=== PATIENT | male | born 1985 | race Two or more races ===

== ENCOUNTER 2022-12-22 11:54 | Emergency (ER) | payer SELFPAY ==
[~2022-12-22] VITALS: Ht 177.8 cm; Wt 102.0 kg
[2022-12-22 13:28] LABS: BASOPHILS % 0.6 % (0.0-2.0); EOSINOPHILS % 2.9 % (0.0-5.0); HEMATOCRIT. 46.1 % (42.0-52.0); MEAN CORPUSCULAR HEMOGLOBIN 30.4 pg (28.0-32.0); MEAN CORPUSCULAR VOLUME 87.6 fL (80.0-94.0); MEAN PLATELET VOLUME 8.1 fl (7.4-10.4); NEUTROPHILS % 60.5 % (40.0-76.0); PLATELET 234 x1000/uL (130-400); RED BLOOD CELL COUNT 5.26 mill/uL (4.7-6.1)
[2022-12-22 13:36] LABS: CHLORIDE 111 mEq/L (98-107)
[2022-12-22] MEDS ORDERED: HYDROCODONE/ACETAMINOPHEN 5/325MG TABLET PO ONE (15:15)
[2022-12-22 15:28] VITALS: BP 115/67
[2022-12-22] MEDS ORDERED: FAMO-135 MT (17:27)
== END 2022-12-22 18:43 | disposition home or self-care (01) ==
LOC: ER 11:54
DX: R10.84 Generalized abdominal pain (principal); R11.2 Nausea with vomiting, unspecified
CPT/HCPCS: 36415; 71045; 74176; 80053; 85025; 99285

== ENCOUNTER 2023-01-07 15:17 | Emergency (ER) | payer MEDICAID ==
[~2023-01-07] VITALS: Ht 172.7 cm; Wt 81.8 kg
[~2023-01-07 15:17] MED LIST: FAMO-135 MT
[2023-01-07 16:01] VITALS: BP 109/71
[2023-01-07 16:29] LABS: BASOPHILS % 0.8 % (0.0-2.0); EOSINOPHILS % 6.2 % (0.0-5.0); HEMOGLOBIN. 15.8 g/dL (14.0-18.0); LYMPHOCYTES % 35.4 % (20.0-50.0); MEAN CORPUSCULAR HEMOGLOBIN 30.6 pg (28.0-32.0); MEAN CORPUSCULAR VOLUME 89.1 fL (80.0-94.0); MEAN PLATELET VOLUME 8.5 fl (7.4-10.4); MONOCYTES % 7.9 % (2.0-8.0); NEUTROPHILS % 49.7 % (40.0-76.0); PLATELET 239 x1000/uL (130-400); RED BLOOD CELL COUNT 5.16 mill/uL (4.7-6.1); RED CELL DISTRIBUTION WIDTH 13.3 % (11.6-14.6)
[2023-01-07 16:30] LABS: CHLORIDE 111 mEq/L (98-107)
[2023-01-07 18:08] LABS: CLARITY URINE CLEAR (CLEAR); COLOR URINE YELLOW (YELLOW); KETONES URINE NEGATIVE (NEGATIVE); LEUKOCYTE ESTERASE URINE NEGATIVE (NEGATIVE); NITRITE URINE NEGATIVE (NEGATIVE); OCCULT BLOOD URINE NEGATIVE (NEGATIVE); PROTEIN URINE NEGATIVE (NEGATIVE); SPECIFIC GRAVITY URINE 1.028 (1.005-1.030)
[2023-01-07] MEDS ORDERED: IBUP-2029 MT (20:50)
== END 2023-01-07 21:12 | disposition home or self-care (01) ==
LOC: ER 15:22 → EDBD 15:22 → ER 21:12
DX: R10.13 Epigastric pain (principal); R07.89 Other chest pain
CPT/HCPCS: 36415; 71045; 74176; 80053; 81003; 84484; 85025; 93005; 99285; 99291